=== PATIENT | male | born 1980 | race Caucasian/White ===

== ENCOUNTER 2017-07-10 12:30 | Inpatient (IN) | payer BC ==
[~2017-07-10] VITALS: Ht 182.9 cm; Wt 131.4 kg
[2017-07-10 16:26] LABS: BASO % 0.3 % (0.0-2.0); EOS # 0.1 (0.0-0.7); EOS % 0.8 % (0-4.0); GRAN # 10.1 (1.4-6.5); GRAN % 87.5 % (42.2-75.2); LYMPH # 0.6 (1.2-3.4); LYMPH % 4.8 % (20.0-51.0); MEAN CELL VOLUME 87 fl (80.0-100.0); MEAN CORPUSCULAR HEMOGLOBIN 30 pg (27.0-31.0); MEAN CORPUSCULAR HGB CONC 34 g/dl (33.0-37.0); MEAN PLATELET VOLUME 9.6 fl (7.4-10.4); MONO # 0.7 (0.1-0.6); MONO % 6.2 % (1.7-9.3); PLATELET COUNT 239 K/mm3 (130-400); RED BLOOD COUNT 5.08 M/mm3 (4.20-5.60); REDCELL DISTRIBUTION WIDTH-CV 12.6 % (11.5-14.5)
[2017-07-10 16:41] LABS: COLLECTION METHOD CLEAN CATCH
[2017-07-10 16:42] LABS: ALBUMIN 4.7 gm/dL (3.5-5.0); BILIRUBIN,TOTAL 1.4 mg/dL (0.0-1.0); CREATININE, serum 0.91 mg/dL (0.66-1.25); POTASSIUM 4.1 mmol/L (3.4-5.0); TOTAL PROTEIN 8.1 gm/dL (6.4-8.2)
[2017-07-10 16:51] LABS: MUCOUS Present /lpf; PH 5 (5-8); SQUAMOUS EPITHELIAL 0-2 /hpf; URINE APPEARANCE Clear; URINE BACTERIA Rare /hpf; URINE BILIRUBIN Negative (NEGATIVE); URINE BLOOD Negative (NEGATIVE); URINE COLOR Amber; URINE GLUCOSE Negative (NEGATIVE); URINE KETONE 2+ (NEGATIVE); URINE LEUKOCYTE ESTERASE Negative (NEGATIVE); URINE NITRATE Negative (NEGATIVE); URINE PROTEIN(semi-quant) 1+ (NEGATIVE); URINE RBC 0-2 /hpf; URINE UROBILINOGEN >=4.0 mg/dL (NEGATIVE)
[2017-07-10 17:01] LABS: C-REACTIVE PROTEIN 22.8 mg/dL (0.0-0.9)
[2017-07-10 18:52] VITALS: BP 127/71; PULSE 117; TEMP 99.7
[2017-07-10 21:49] VITALS: BP 113/56; PULSE 74; TEMP 100.5
[2017-07-11 02:31] VITALS: BP 142/63; PULSE 65; TEMP 99.4
[2017-07-11 06:23] VITALS: BP 122/65; PULSE 99; TEMP 98.5
[2017-07-11 06:50] LABS: BASO # 0.1 (0.0-0.2); BASO % 0.4 % (0.0-2.0); EOS # 0.1 (0.0-0.7); EOS % 1.1 % (0-4.0); GRAN # 10.1 (1.4-6.5); HEMATOCRIT 37.7 % (42.0-52.0); LYMPH # 1.7 (1.2-3.4); LYMPH % 12.6 % (20.0-51.0); MEAN CELL VOLUME 88 fl (80.0-100.0); MEAN CORPUSCULAR HGB CONC 34 g/dl (33.0-37.0); MEAN PLATELET VOLUME 9.9 fl (7.4-10.4); MONO # 1.3 (0.1-0.6); MONO % 9.4 % (1.7-9.3); PLATELET COUNT 221 K/mm3 (130-400); RED BLOOD COUNT 4.31 M/mm3 (4.20-5.60); REDCELL DISTRIBUTION WIDTH-CV 12.8 % (11.5-14.5)
[2017-07-11 06:53] LABS: HEMOGLOBIN 12.7 g/dl (13.5-18.0); MEAN CORPUSCULAR HEMOGLOBIN 29 pg (27.0-31.0)
[2017-07-11 07:07] LABS: CALCIUM 8.9 mg/dL (8.4-10.2); CREATININE, serum 0.95 mg/dL (0.66-1.25); POTASSIUM 3.8 mmol/L (3.4-5.0)
[2017-07-11 09:45] VITALS: BP 115/71; PULSE 99; TEMP 100
[2017-07-11 13:18] VITALS: BP 121/66; PULSE 105; TEMP 101.1
[2017-07-11 17:08] VITALS: BP 132/79; PULSE 103; TEMP 99.7
[2017-07-11 22:17] VITALS: BP 121/66; PULSE 104; TEMP 102.4
[2017-07-12 01:53] VITALS: BP 115/59; PULSE 99; TEMP 100.1
[2017-07-12 05:05] VITALS: BP 116/66; PULSE 105; TEMP 99
[2017-07-12 07:14] LABS: MEAN CELL VOLUME 88 fl (80.0-100.0); MEAN CORPUSCULAR HGB CONC 33 g/dl (33.0-37.0); MEAN PLATELET VOLUME 9.9 fl (7.4-10.4); PLATELET COUNT 230 K/mm3 (130-400); RED BLOOD COUNT 3.98 M/mm3 (4.20-5.60); REDCELL DISTRIBUTION WIDTH-CV 12.8 % (11.5-14.5)
[2017-07-12 07:29] LABS: HEMATOCRIT 35.2 % (42.0-52.0); HEMOGLOBIN 11.7 g/dl (13.5-18.0); MEAN CORPUSCULAR HEMOGLOBIN 29 pg (27.0-31.0)
[2017-07-12 10:14] VITALS: BP 132/74; PULSE 95; TEMP 99.1
[2017-07-12 13:58] VITALS: BP 147/88; PULSE 113; TEMP 98.6
[2017-07-12 17:41] VITALS: BP 128/68; PULSE 106; TEMP 100.5
[2017-07-12 22:24] VITALS: BP 141/78; PULSE 111; TEMP 101.1
[2017-07-13] VITALS (19 sets, daily range): BP systolic 120–164; BP diastolic 60–108; PULSE 84–105; TEMP 97.9–99.1
[2017-07-13 07:01] LABS: MEAN CELL VOLUME 87 fl (80.0-100.0); MEAN CORPUSCULAR HGB CONC 34 g/dl (33.0-37.0); MEAN PLATELET VOLUME 9.9 fl (7.4-10.4); PLATELET COUNT 227 K/mm3 (130-400); RED BLOOD COUNT 3.95 M/mm3 (4.20-5.60); REDCELL DISTRIBUTION WIDTH-CV 12.6 % (11.5-14.5)
[2017-07-13 07:32] LABS: HEMATOCRIT 34.3 % (42.0-52.0); HEMOGLOBIN 11.7 g/dl (13.5-18.0); MEAN CORPUSCULAR HEMOGLOBIN 30 pg (27.0-31.0)
[2017-07-13 07:42] LABS: CALCIUM 8.7 mg/dL (8.4-10.2); CREATININE, serum 0.75 mg/dL (0.66-1.25); POTASSIUM 3.2 mmol/L (3.4-5.0)
[2017-07-14 01:56] VITALS: BP 122/70; PULSE 81; TEMP 98.2
[2017-07-14 04:45] VITALS: BP 127/71; PULSE 90; TEMP 98.3
[2017-07-14 09:57] VITALS: BP 134/68; PULSE 89; TEMP 98.8
[2017-07-14] MEDS ORDERED: FLAGYL500 MG PO (11:06)
[2017-07-14] MEDS ORDERED: AMOXICILLIN 8751 TAB PO (11:07)
== END 2017-07-14 13:15 | disposition home or self-care (01) | DRG 392 ==
LOC: COL.ER 12:30 → SURG 17:47
PROVIDERS: Emergency Medicine; Surgery
PROC: 0W9H30Z Drainage of Retroperitoneum with Drainage Device, Percutaneous Approach (ICD-10-PCS; principal; 2017-07-13)
DX: K57.20 Diverticulitis of large intestine with perforation and abscess without bleeding (principal)
CPT/HCPCS: J1650; J1885; J2250; J2543; J3010; J7030; J7050; J7120; Q9967